=== PATIENT | female | born 1985 | race Two or more races ===

== ENCOUNTER 2018-02-03 09:03 | Emergency (ER) | payer SELFPAY ==
[~2018-02-03] VITALS: Ht 165.1 cm; Wt 111.8 kg
[2018-02-03] MEDS ORDERED: ONDANSETRON ODT 4 MG ONE (09:24)
[2018-02-03] MEDS ORDERED: KETOROLAC 30 MG/1 ML ONE (09:24)
[2018-02-03] MEDS ORDERED: KETOROLAC 30 MG/1 ML IM ONE (09:30)
[2018-02-03] MEDS ORDERED: ONDANSETRON ODT 4 MG PO ONE (09:30)
[2018-02-03 09:44] LABS: BASOPHILS # (AUTO) 0.05 x10^3/uL (0-0.1); BASOPHILS % (AUTO) 0 % (0-1); EOSINOPHILS # (AUTO) 0.07 x10^3/uL (0-0.4); EOSINOPHILS % (AUTO) 1 % (1-7); LYMPHOCYTES # (AUTO) 1.69 x10^3/uL (1-3.4); LYMPHOCYTES % (AUTO) 15 % (22-44); MD NO; MEAN CORPUSCULAR HEMOGLOBIN 29.7 pg (27.0-34.8); MEAN CORPUSCULAR VOLUME 87.4 fL (80-100); MONOCYTES # (AUTO) 0.72 x10^3/uL (0.2-0.8); MONOCYTES % (AUTO) 7 % (2-9); NEUTROPHILS # (AUTO) 8.46 x10^3/uL (1.8-6.8); NEUTROPHILS % (AUTO) 77 % (42-75); PLATELET COUNT 267 x10^3/uL (130-400); RED BLOOD COUNT 4.51 x10^6/uL (3.82-5.3); RED CELL DISTRIBUTION WIDTH 14.4 % (9.6-15.2)
[2018-02-03 09:56] LABS: ANION GAP 6 mmol/L (5-15); CALCIUM 8.8 mg/dL (8.5-10.1); CHLORIDE 109 mmol/L (98-107)
[2018-02-03 09:57] LABS: ALBUMIN 3.9 g/dL (3.4-5.0)
[2018-02-03 10:02] LABS: ALANINE AMINOTRANSFERASE 32 U/L (12-78); ALKALINE PHOSPHATASE 51 U/L (45-117); BILIRUBIN,TOTAL 0.5 mg/dL (0.2-1.0); TOTAL PROTEIN 7.8 g/dL (6.4-8.2)
[2018-02-03 10:18] LABS: MICROSCOPIC INDICATED
[2018-02-03 10:39] LABS: CULTURE INDICATED? YES
[2018-02-03 11:20] VITALS: BP 144/65
== END 2018-02-03 11:26 | disposition home or self-care (01) ==
LOC: ED 10:41
DX: R30.0 Dysuria (principal); R10.32 Left lower quadrant pain; R11.0 Nausea
CPT/HCPCS: 36415; 76830; 80053; 81001; 84703; 85025; 87086; 96372; 99285; J1885; Q0162